=== PATIENT | female | born 1950 | race Caucasian/White ===

== ENCOUNTER → 2017-05-21 | Outpatient (CLI) | payer OTHER ==
[~2017-05-21] MED LIST: ADDERALL 5 MG TA5 M1 PO; ADVAIR 100-501 EACH INH; ALLEGRA180 MG PO; ANASPAZ0.125 MG SL; ANTIVERT25 MG PO; APAP500 PO; ASTEPRO NS; AUGMENTIN 875875 MG PO; BACTROBAN NASAL1 GM NASAL; BENTYL 10 MG CA10 MG PO; BENTYL10 MG PO; BISACODYL SUPP10 MG RECTAL; BUSPIRONE HCL10 MG PO; CLONAZEPAM 0.50.5 M1 PO; CLONAZEPAM 1 MG1 M1 PO; DIVIGEL0.25 MG VAG; ESTRACE1 TUBE VAG; ETODOLAC 400 M400 M1 PO; ETODOLAC500 MG PO; EXCEDRIN CAPLE1 EACH PO; FELDENE20 MG PO; FLEXERIL PO; FLONASE 0.05%50 MCG NASAL; HYDROCODON-ACE1 EAC5 PO; HYDROCODONE-AP1 EAC6 PO; KEFLEX500 MG PO; LEXAPRO20 MG PO; LODINE XL400 MG PO; LODINE XL500 MG PO; LYRICA 75 MG CA75 MG PO; MACROBID 100 M100 M2 PO; MIRALAX255 GM PO; MUCINEX TA600 MG/TA2 PO; MULTIVITAMINS1 EAC7 PO; NEURONTIN 300300 M1 PO; NEXIUM40 MG PO; NORCO 10-325 T1 EACH PO; NORCO 5-325 TA1 EACH PO; PHENERGAN 25 MG25 MG PO; PRILOSEC 20 MG20 MG PO; PRILOSEC40 MG PO; PROAIR HFA8.5 GM NS; PROGESTERONE100 MG PO; RESTASIS1 EACH OPHTHALMIC; RITALIN5 MG PO; SEROQUEL 50 MG50 MG PO; SEROQUEL200 MG PO; SIMVASTATIN40 MG PO; SINGULAIR 10 MG10 M1 PO; SKELAXIN 800 M800 M1 PO; SLEEPING PILL; TESSALON PERLE100 M1 PO; TESSALON PERLE100 MG PO; TIZANIDINE HCL4 M1 PO; TOPAMAX 100 MG100 MG PO; TOPAMAX 25 MG T25 MG PO; TRICOR145 MG PO; VICODIN 5-5001 EACH PO; VIT D PO; VITAMIN D1000 UNI1 PO; VITAMIN D3400 UNIT PO; [UNRECOGNIZED DRUG - MIXTURE]; [UNRECOGNIZED DRUG - OTHER]; [UNRECOGNIZED DRUG - OTHER]; [UNRECOGNIZED DRUG - OTHER] PO
--- NOTE | 2017-06-05 08:28 | PAINCON ---
[address] [address] PAIN MANAGEMENT CONSULTATION Name: ANGIE VILLAR Room: [facility] NAKIA PizanoMisty#: [id number] Admission: 05/21/17 Attend Phys: Maria Teresa Fernando MD Discharge: Date of : 50 Report #: [id number] THIS REPORT FOR: //name// CC: Lance Fernando DATE OF SERVICE: 05/21/2017 CHIEF COMPLAINT: "Pain in my right foot on the bottom and in the little toe." HISTORY OF PRESENT ILLNESS: The patient is a 66-year-old female who has been referred to the pain clinic for evaluation. The patient states that she has a history of low back pain. She has undergone back surgery. Since the back surgery, she has had pain and discomfort radiating down into her right leg. She states that a considerable amount of her right leg was numb after the procedure, but most of that receded and improved. She has a residual amount of discomfort involving her right foot. Notes that activities of daily living such as walking, driving a car, and sleep are problematic secondary to this pain. She notes a burning, tingling type of discomfort in the plantar portion of her foot. Her right little toe is numb. She finds that this is quite disturbing and would like to have this evaluated and possibly treated. She has a spinal cord stimulator placed. She did undergo a series of epidural steroid injections in the past. After they were no longer helpful, a spinal cord stimulator was placed. This has been effective and quite helpful for the back pain. ALLERGIES: No known drug allergies. CURRENT MEDICATIONS: Include buspirone 10 mg b.i.d. provided by Dr. Pichardo, vitamin D 1000 units daily, vitamin D3 50,000 units weekly, clonazepam 1 mg daily, Restasis eye drops 1 drop to each eye b.i.d., Lexapro 20 mg, Estrace tube vaginal cream, etodolac 500 mg b.i.d., Flonase 0.05% nasal spray, Singulair 10 mg, Macrobid 100 mg as directed Saturday, Saturday, and Saturday, Prilosec 40 mg b.i.d., Seroquel 50 mg t.i.d., and Zocor 40 mg at bedtime. PAST MEDICAL HISTORY: 1. History of lumbar radiculopathy. 2. Multilevel degenerative disk disease. 3. Bilateral sacroiliitis. 4. Irritable bowel syndrome. 5. Chronic fatigue syndrome, by history. 6. Migraine headache without aura. 7. Compression fracture at T12. 8. Anxiety disorder. 9. Depression. 10. [place] [address] PAIN MANAGEMENT CONSULTATION Name: ANGIE VILLAR Room: [facility]#: [id number] Admission: 05/21/17 Attend Phys: Maria Teresa Fernando MD Discharge: Date of : 50 Report #: [id number] 11. Gastroesophageal reflux. 12. Dyslipidemia. PAST SURGICAL HISTORY: 1. Cholecystectomy. 2. Hysterectomy. 3. Bladder sling. 4. Back surgery. 5. Dorsal column stimulator. 6. Left shoulder surgery. 7. Excision of lump in the axilla of the left arm. SOCIAL HISTORY: The patient denies use of illicit drugs. Denies use of alcohol other than about once per three months. The patient retired about 16 years ago. REVIEW OF SYSTEMS: Questionnaire in the chart indicate noticed some weight gain, headaches, constipation, nocturia, insomnia, lightheadedness, dizziness, depression, anxiety disorder, dyslipidemia, gastroesophageal reflux. Pain impact score 26/70 indicating mild to moderate interference of daily activities. LABORATORY DATA: 1. History of multilevel degenerative disk disease of the lumbar spine with multilevel disk bulging, increased, including L5-S1 herniated disk nucleus pulposus with extrusion, which caused a right neural foraminal stenosis. 2. Status post left L4-L5 decompression hemilaminectomy. 3. Mild central spinal canal stenosis at L5-S1 and significant central spinal canal stenosis at L4-L5. 4. Multilevel degenerative facet osteoarthropathy of the lumbar spine. 5. History of right sacroiliitis. PAIN CLINIC ASSESSMENT: 1. The patient has some osteoarthritic changes in her low back. 2. Height 5 feet 6 inches, weight 178 pounds, BMI is 28.8. 3. Vital signs, blood pressure 142/71, heart rate 123, respiratory rate 16, room air saturation 96%, temperature 98.4. 4. Pain intensity score 8/10 for pain involving the right foot, the patient states that her low back pain is reasonably well controlled with her dorsal column stimulator. 5. Fall risk. The patient has not fallen and does not need assistance with walking, has not fallen in the last 3 months. 6. The patient is not on any blood thinner. 7. The patient is not being treated for hypertension. 8. Opioid therapy greater than 6 weeks. The patient is not on chronic opioid therapy at this juncture. 9. Risk assessment tool. 10. Recreational drug use, the patient denies [place] [address] PAIN MANAGEMENT CONSULTATION Name: ANGIE VILLAR Room: [facility]#: [id number] Admission: 05/21/17 Attend Phys: Maria Teresa Fernando MD Discharge: Date of : 50 Report #: [id number] patient denies use of tobacco. 11, The patient denies alcoholic use, particularly with use of her current medication regimen. PHYSICAL EXAMINATION: GENERAL: The patient is a well-developed, well-nourished white female. Appearance, appears appropriate at stated age. Orientation, the patient is alert and oriented with appropriate speech without push of speech. Affect, the patient appears appropriate and calm. HEENT: The patient is normocephalic and atraumatic. Extraocular eye muscles intact. Hearing is within normal limits. The patient denies any significant nasal congestion or problems. Buccal membranes are moist. NECK: Without bruits or masses. LUNGS: Clear to auscultation. HEART: Regular rate, normal S1, S2. ABDOMEN: Nontender. MUSCULOSKELETAL: Alignment appears normal without significant scoliosis, kyphosis, or lordosis. The patient's gait is somewhat normal with some complaint of discomfort in the right foot with ambulation. Back flexion to 40 degrees, lumbar extension left and right, lateral rotation left and right, and lateral bending were not very problematic. Muscle strength in the upper extremities is judged to be 5/5. Biceps tendon reflexes are +2 bilaterally, trace for brachioradialis and trace for triceps bilaterally. Sensations are within normal limits in the upper extremities. Deep tendon reflexes are +2 at the knees bilaterally and +1 at the ankles bilaterally. Muscle strength is judged to be 5/5 for the major muscle groups of the lower extremities. The patient is able to stand on her heels and stand on her toes. The patient's right foot is warm with good capillary refill at about 1 second. There is no sweating or hair changes. The patient complains of a numb sensation on the lateral portion of her little toe. She complains of pain and discomfort, which is a numbness, burning type discomfort underneath her toes on the plantar portion of her foot underneath her toes in the metatarsal areas. IMPRESSION: 1. Right foot pain in the plantar area as well as numbness along the lateral side of her small toe after back surgery. 2. History of lumbar radicular pain, improved with dorsal column stimulator, status post back surgeries. 3. Anxiety disorder. 4. Depression. 5. Postmenopausal symptoms. 6. Gastroesophageal reflux. 7. Hyperlipidemia. RECOMMENDATIONS: We discussed treatment options with the patient. A model was used to explain the anatomy of foot. Nerves, blood vessels, [place] [address] PAIN MANAGEMENT CONSULTATION Name: ANGIE VILLAR Uriel Room: [facility]#: [id number] Admission: 05/21/17 Attend Phys: Maria Teresa Fernando MD Discharge: Date of : 50 Report #: [id number] were reviewed with the patient. Most likely the cause of the pain was discussed. At this juncture, there are no lesions and foot surgery was not performed. It appears that this is a pain resulting from irritation of nerves involving the plantar fascia and the lateral portion of her foot with numbness along the lateral surface. We will consider a conservative approach. At this juncture, she will be given gabapentin and titrated as directed. She will call us if she has any concerns regarding this medication. We would like to thank you for letting us participate in her care. We hope she continues to improve. <ELECTRONICALLY SIGNED> By: Maria Teresa Fernando MD 06/05/17 0828 [id number] [id number]. [place]oacano Fernando MD /[facility]
== END ==
LOC: M.PC 03:30
DX: M79.671 Pain in right foot (principal); R20.0 Anesthesia of skin; M54.5 Low back pain; F41.9 Anxiety disorder, unspecified; F32.9 Major depressive disorder, single episode, unspecified; K21.9 Gastro-esophageal reflux disease without esophagitis; E78.5 Hyperlipidemia, unspecified; Z90.49 Acquired absence of other specified parts of digestive tract; Z90.710 Acquired absence of both cervix and uterus

== ENCOUNTER → 2017-06-18 | Outpatient (CLI) | payer OTHER ==
--- NOTE | 2017-07-03 08:21 | PAINCON ---
[facility] [address] [place] [address] PAIN MANAGEMENT CONSULTATION Name: ANGIE VILLAR Room: [facility] NAKIA Nguyen#: [id number] Admission: 06/18/17 Attend Phys: Maria Teresa Fernando MD Discharge: Date of : 50 Report #: [id number] THIS REPORT FOR: //name// CC: Lance Fernando DATE OF SERVICE: 06/18/2017 FOLLOWUP COMPLAINT: "The pain is doing better with no shooting pain in my little toe." FOLLOWUP HISTORY: The patient is a 66-year-old female who has been referred to the pain clinic for evaluation of foot pain. The patient has had some pain, which she states started some time ago. She has undergone back surgery. Since her back surgery, she has had pain and discomfort, which radiated down into her right foot. She has had numbness in her right leg. She has had a continued residual discomfort involving her right foot. She notes that activities of daily living such as driving her car, walking and sleep have been problematic secondary to this pain. She has had some burning, tingling type of discomfort in the plantar portion of her foot. She still has some numbness in her little toe. She does have a spinal cord stimulator in place. She has undergone epidural steroid injections. Given the pain that she was experiencing gabapentin 300 mg 1 p.o. t.i.d. was started at the last visit. She feels that her pain is improved. She rates it as a 3/10 at this juncture, down from an 8/10 at the last visit. She still has some numbness and tingling, but much more tolerable at this juncture. She is also trying to lose weight. Overall, she feels that things are going reasonably well and would like to continue with her current regimen. ALLERGIES: NO KNOWN DRUG ALLERGIES. MEDICATIONS: Review of current medications buspirone 10 mg p.o. b.i.d., vitamin D 1000 units daily, vitamin D3 50,000 units weekly, clonazepam 1 mg daily, Restasis eye drops 1 drop to each eye b.i.d., Lexapro 20 mg, Estrace tube vaginal cream, Etodolac 500 mg b.i.d., Flonase 0.05% nasal spray, Singulair 10 mg, Macrobid 100 mg as directed on Saturday, Saturday, Saturday, Prilosec 40 mg b.i.d., Seroquel 50 mg t.i.d., Zocor 40 mg at bedtime. PAIN CLINIC ASSESSMENT: 1. The patient has some osteoarthritic changes in her low back. 2. Height 5 feet 6 inches, weight 191 pounds, BMI is 30.9. 3. VITALS: Blood pressure 100/76, heart rate 89, respiratory rate 16, room air saturation 95%, temperature 98.6. 4. Pain intensity 3/10 involving the right foot down from 8/10 [place] [address] PAIN MANAGEMENT CONSULTATION Name: ANGIE VILLAR Room: [facility]#: [id number] Admission: 06/18/17 Attend Phys: Maria Teresa Fernando MD Discharge: Date of : 50 Report #: [id number] 5. Fall risk. The patient has not fallen in the last 3 months. 6. The patient is not on a blood thinner. 7. The patient is not being treated for hypertension. 8. Opioid therapy greater than 6 weeks. The patient is not on a chronic opioid therapy regimen. 9. Risk assessment tool. 10. Recreational drug use. The patient denies use of recreational drugs. 11. The patient denies use of tobacco. 12. The patient denies alcoholic use regularly. PHYSICAL EXAMINATION: GENERAL: The patient is a well-developed, well-nourished white female. She appears her stated age. Orientation: The patient is alert and oriented x 3. Speech is fluent without push. Affect appears appropriate and the patient is calm. HEENT: The patient is normocephalic, atraumatic. Extraocular eye muscles intact. Hearing is within normal limits. The patient denies any significant nasal congestion or problems. Mucous membranes are moist. NECK: Without bruits or masses. LUNGS: Clear to auscultation. HEART: Regular rate, normal S1, S2. ABDOMEN: Nontender. MUSCULOSKELETAL: Alignment is within normal limits without significant scoliosis, kyphosis or lordosis. The patient's gait is somewhat normal, but does complain of some right foot pain with ambulation. Muscle strength to the lower extremities judged to be 5/5 with symmetry. Upper extremity biceps +2, brachioradialis and triceps trace bilaterally. Muscle strength judged to be 5/5 in the upper extremities. The patient has some numbness and tingling in the right lower foot with some decrease in numbness, decreased burning and discomfort on the plantar portion beneath the metatarsals of her toe. IMPRESSION: 1. Right foot pain in the plantar area with improvement after gabapentin. Was more problematic after back surgery. 2. History of lumbar radicular pain improved with dorsal column stimulator, status post back surgeries. 3. Anxiety disorder. 4. Depression. 5. Post-menopausal symptoms. 6. Gastroesophageal reflux. 7. Hyperlipidemia. RECOMMENDATIONS: We discussed the treatment options with the patient. She has not had any problems with the gabapentin. Overall, she feels that things are improving. She feels that things have progressed. She feels that there is about an 80% improvement in her discomfort with [place] [address] PAIN MANAGEMENT CONSULTATION Name: ANGIE VILLAR Room: [facility] NAKIA PizanoMisty#: [id number] Admission: 06/18/17 Attend Phys: Maria Teresa Fernando MD Discharge: Date of : 50 Report #: [id number] complications. At this juncture, we will continue with the medications. If she notes any problems, she will call and contact the pain clinic. Otherwise, we will continue with this current medical regimen given its benefits for the patient. We would like to thank you for letting us participate in her care. We hope she continues to improve. <ELECTRONICALLY SIGNED> By: Maria Teresa Fernando MD 07/03/17 0821 [id number]. Michoacano Fernando MD /nt
== END ==
LOC: M.PC 00:27
DX: M54.16 Radiculopathy, lumbar region (principal)

== ENCOUNTER → 2017-07-16 | Outpatient (CLI) | payer OTHER ==
--- NOTE | 2017-07-23 08:16 | PAINCON ---
[address] [address] PAIN MANAGEMENT CONSULTATION Name: ANGIE VILLAR [facility] [id number] Admission: 07/16/17 Attend Phys: Maria Teresa Fernando MD Discharge: Date of : 50 Report #: [id number] THIS REPORT FOR: //name// CC: Lance Fernando DATE OF SERVICE: 07/16/2017 FOLLOWUP COMPLAINT: The gabapentin is working well. FOLLOWUP HISTORY: The patient is a 66-year-old female who has been seen in the Pain Clinic because of chronic foot pain. At this juncture, she finds that the gabapentin medication is working relatively well. She rates her pain as a 2/10. She is having less of the shooting pain. She does still have some pain and discomfort around her "baby toe with some numbness. Also, there is some discomfort in the ball of her foot. Overall, she feels that the gabapentin has been beneficial. She is not having any complaints from that and would like to continue its use. She rates overall the success with about 80% improvement in her pain. ALLERGIES: No known drug allergies. MEDICATIONS: Buspirone 10 mg 1 p.o. b.i.d., vitamin D 1000 units daily, vitamin D3 50,000 units weekly, clonazepam 1 mg daily, Restasis eye drops each eye b.i.d., Lexapro 20 mg, esterase tube vaginal cream, Etodolac 500 mg b.i.d., Flonase 0.05% nasal spray, Singulair 10 mg, Macrobid 100 mg as directed on Saturday, Saturday, and Saturday, Prilosec 40 mg b.i.d., Seroquel 50 mg t.i.d., Zocor 40 mg at bedtime. PAIN CLINIC ASSESSMENT: 1. The patient has some osteoarthritic changes in her low back. 2. Height 5 feet 6 inches, weight 191 pounds, BMI is 30.8. 3. VITAL SIGNS: Blood pressure 125/79, respiratory rate is 16, heart rate is 90, room air saturation is 95%, and temperature 98.5. 4. Pain intensity judged to be 2/10, down from 8/10. 5. Fall risk. The patient has not fallen in the last 3 months. 6. The patient is not on a blood thinner. The patient does not take one. 7. Hypertension. The patient is not being treated for hypertension. 8. Opioid therapy greater than 6 weeks. The patient is not on chronic opioid medication. 9. Risk assessment tool. 10. Recreational drugs. The patient denies use of recreational drugs. 11. Tobacco: The patient denies use of tobacco. 12. Alcoholic beverage use. The patient denies [place] [address] PAIN MANAGEMENT CONSULTATION Name: ANGIE VILLAR Room: [facility]#: [id number] Admission: 07/16/17 Attend Phys: Maria Teresa Fernando MD Discharge: Date of : 50 Report #: [id number] PHYSICAL EXAMINATION: GENERAL: The patient is a well-developed and well-nourished white female. She appears her stated age. She is alert and oriented x 3. Speech is fluent. Affect is appropriate. HEENT: The patient is normocephalic, atraumatic. Extraocular eye muscles intact. Sclerae noninjected. Hearing is within normal limits. Mucous membranes are moist. NECK: Without adenopathy or bruits. HEART: Regular rate with normal S1, S2. LUNGS: Clear to auscultation without rubs or rhonchi. ABDOMEN: Nontender without organomegaly. MUSCULOSKELETAL: The patient has normal alignment without significant scoliosis, kyphosis, or lordosis. Her gait is somewhat normal. Does have some right foot pain and ambulates with care. Muscle strength in upper extremity is judged to be 5/5 for the major muscle groups with symmetry. Lower muscle strength is judged to be 5/5 in the major muscle groups with symmetry. The patient has some pain and discomfort in the right baby toe and numbness in the ball of her right foot. IMPRESSION: 1. Right foot pain in the plantar area with improvement after gabapentin. It was more problematic after back surgery. 2. History of lumbar radicular pain, improved with dorsal column stimulation status post back surgery. 3. Anxiety disorder. 4. Depression. 5. Postmenopausal symptoms. 6. Gastroesophageal reflux. 7. Hyperlipidemia. RECOMMENDATIONS: We discussed treatment options with the patient. At this juncture, she seems to be doing relatively well with the gabapentin. We will have her continue with this medication over the next 3 months. A script for this medication has been written. She will call us if she has any problems. Overall, she has noted an 80% improvement with her pain. We will continue with this medication. She will call us if she has any problems. We would like to thank you for letting us participate in her care. We hope she continues to improve. <ELECTRONICALLY SIGNED> By: Maria Teresa Fernando MD 07/23/17 0816 [id number]. Michoacano Fernando MD /nt
== END ==
LOC: M.PC 01:27
DX: F41.9 Anxiety disorder, unspecified (principal); E78.5 Hyperlipidemia, unspecified; N95.1 Menopausal and female climacteric states

== ENCOUNTER → 2017-08-09 | Outpatient (CLI) | payer OTHER | LOC: M.CT 13:30 | DX: R91.8 Other nonspecific abnormal finding of lung field (principal) ==

== ENCOUNTER → 2017-10-09 | Outpatient (CLI) | payer OTHER ==
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
== END | disposition home or self-care (01) ==
LOC: M.PC 10-08 09:20
DX: M47.816 Spondylosis without myelopathy or radiculopathy, lumbar region (principal); M47.817 Spondylosis without myelopathy or radiculopathy, lumbosacral region; M54.9 Dorsalgia, unspecified; S22.080A Wedge compression fracture of T11-T12 vertebra, initial encounter for closed fracture; S32.010A Wedge compression fracture of first lumbar vertebra, initial encounter for closed fracture; Z79.891 Long term (current) use of opiate analgesic; Z79.899 Other long term (current) drug therapy; X58.XXXA Exposure to other specified factors, initial encounter; Y93.89 Activity, other specified; Y92.89 Other specified places as the place of occurrence of the external cause; Y99.8 Other external cause status

== ENCOUNTER → 2017-11-07 | Outpatient (CLI) | payer OTHER ==
--- NOTE | 2017-11-27 16:41 | PAINCON ---
[facility] [address] [place] [address] PAIN MANAGEMENT CONSULTATION Name: ANGIE VILLAR Room: [facility] ESTER Wendy#: [id number] Admission: 11/07/17 Attend Phys: Maria Teresa Fernando MD Discharge: Date of : 50 Report #: [id number] THIS REPORT FOR: //name// CC: Lance Fernando DATE OF SERVICE: 11/07/2017 FOLLOWUP COMPLAINT: Here for medication renewal. FOLLOWUP HISTORY: The patient is a 67-year-old female who has been followed in the pain clinic. As you recall, she has low back pain. She has had it for years. She does wear a back brace. She is able to clean. 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 She gets no help at home. She does wear a back brace. This enables her to do more activities with less discomfort. She states that she received about 50% improvement in her pain relief after her last injection. Did note some increased sweating. Rates her pain as 4-5/10 at this juncture. Finds that the hydrocodone is helpful and the gabapentin. She would like to continue with these medications. ALLERGIES: No known drug allergies. MEDICATIONS: Buspirone 10 mg 1 p.o. b.i.d., vitamin D 1000 units, vitamin D3 50,000 units weekly, clonazepam 1 mg daily, Restasis eye drops each eye b.i.d., Lexapro 20 mg, esterase tube vaginal cream, Etodolac 500 mg b.i.d., Flonase 0.05% nasal spray, Singulair 10 mg; Macrobid 100 mg Mondays, Wednesdays, Fridays; Prilosec 40 mg b.i.d., Seroquel 50 mg t.i.d., Zocor 40 mg at bedtime. PAIN CLINIC ASSESSMENT: 1. The patient has some osteoarthritic changes in her low back. 2. Height 5 feet 6 inches, weight 189 pounds, BMI is 30.5. 3. Vital signs: Blood pressure 137/85, heart rate 91, respiratory rate 18, room air saturation 97%, temperature 99.9. 4. Pain intensity score 4-5/8. 5. Fall risk. The patient has not fallen in the last 3 months. 6. Hypertension. The patient is not being treated for hypertension. 7. Opioid therapy. The patient is not on a chronic opioid regimen. 8. Risk assessment tool. 9. Recreational drugs use. The patient denies use of recreational drugs. 10. Tobacco: The patient denies use of tobacco. 11. Alcoholic beverages. The patient denies use of alcoholic beverages. PHYSICAL EXAMINATION: GENERAL: The patient is a well-developed, well-nourished white female. Appears her stated age. She is alert and oriented x 3. Speech is fluent[place] [address] PAIN MANAGEMENT CONSULTATION Name: ANGIE VILLAR Room: [facility]#: [id number] Admission: 11/07/17 Attend Phys: Maria Teresa Fernando MD Discharge: Date of : 50 Report #: [id number] HEENT: Normocephalic, atraumatic. Extraocular eye muscles intact. Sclerae noninjected. The patient's hearing is within normal limits. Mucous membranes are moist. NECK: Without adenopathy or bruits. HEART: Regular rate, S1, S2. ABDOMEN: Nontender without organomegaly. MUSCULOSKELETAL: The patient has normal alignment without scoliosis, kyphosis, or lordosis. Gait is somewhat normal. The patient does have right foot pain and ambulates with care. Muscle strength is judged to be 5/5 for the major muscle groups in the upper extremity with symmetry. Lower extremity muscle strength is judged to be 5/5 for the major muscle groups with symmetry as well. The patient has some discomfort in her right baby toe with numbness in the ball of her foot. IMPRESSION: 1. Right foot pain in the plantar area with improvement using gabapentin. It has remained there and had been problematic since her back surgery. 2. History of lumbar radicular pain, improved with dorsal column stimulation, status post back surgery. 3. Anxiety disorder. 4. Depression. 5. Postmenopausal symptoms. 6. Gastroesophageal reflux. 7. Hyperlipidemia. RECOMMENDATIONS: We discussed treatment options with the patient. Risks and benefits of the medication were discussed. Possible complications of gabapentin and hydrocodone were reviewed. I explained to the patient that use of opioid medications such as hydrocodone can be helpful, but can be habit forming. I explained that they can lose their effectiveness secondary to development of tolerance. A script for the patient's medications of gabapentin 300 mg t.i.d., hydrocodone 5 mg one p.o. daily p.r.n. We would like to thank you for letting us participate in her care. We hope she continues to improve. <ELECTRONICALLY SIGNED> By: Maria Teresa Fernando MD 11/27/17 1641 [id number]. [place]oacano Fernando MD /nt
== END ==
LOC: M.PC 03:27
DX: M54.5 Low back pain (principal); M79.671 Pain in right foot; E78.2 Mixed hyperlipidemia; K21.9 Gastro-esophageal reflux disease without esophagitis; F41.9 Anxiety disorder, unspecified; F32.9 Major depressive disorder, single episode, unspecified; Z79.899 Other long term (current) drug therapy; Z78.0 Asymptomatic menopausal state

== ENCOUNTER → 2017-12-05 | Outpatient (CLI) | payer OTHER ==
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
== END ==
LOC: M.PC 04:39
DX: M54.16 Radiculopathy, lumbar region (principal); K21.9 Gastro-esophageal reflux disease without esophagitis; E78.5 Hyperlipidemia, unspecified; M79.671 Pain in right foot; F32.9 Major depressive disorder, single episode, unspecified; F41.9 Anxiety disorder, unspecified; Z78.0 Asymptomatic menopausal state; Z79.899 Other long term (current) drug therapy

== ENCOUNTER → 2018-01-02 | Outpatient (CLI) | payer OTHER ==
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
== END ==
LOC: M.PC 04:49
DX: M54.12 Radiculopathy, cervical region (principal); S32.000D Wedge compression fracture of unspecified lumbar vertebra, subsequent encounter for fracture with routine healing; F32.9 Major depressive disorder, single episode, unspecified; G89.4 Chronic pain syndrome; Z79.899 Other long term (current) drug therapy; X58.XXXD Exposure to other specified factors, subsequent encounter

== ENCOUNTER → 2018-02-04 | Outpatient (CLI) | payer OTHER ==
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
== END ==
LOC: M.PC 08:20
DX: M54.12 Radiculopathy, cervical region (principal); G89.4 Chronic pain syndrome; M43.22 Fusion of spine, cervical region; F32.9 Major depressive disorder, single episode, unspecified; G62.9 Polyneuropathy, unspecified; Z79.899 Other long term (current) drug therapy; Z87.81 Personal history of (healed) traumatic fracture

== ENCOUNTER → 2018-03-04 | Outpatient (CLI) | payer OTHER ==
[~2018-03-04] MED LIST changes: +RITALIN20 MG PO
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
== END ==
LOC: M.PC 05:24
DX: M54.12 Radiculopathy, cervical region (principal); M43.22 Fusion of spine, cervical region; F32.9 Major depressive disorder, single episode, unspecified; Z79.899 Other long term (current) drug therapy; G89.4 Chronic pain syndrome; S32.010A Wedge compression fracture of first lumbar vertebra, initial encounter for closed fracture; X58.XXXA Exposure to other specified factors, initial encounter; Y93.9 Activity, unspecified; Y92.89 Other specified places as the place of occurrence of the external cause; Y99.8 Other external cause status

== ENCOUNTER → 2018-03-10 | Outpatient (CLI) | payer OTHER | LOC: M.CT 13:44 | DX: R91.8 Other nonspecific abnormal finding of lung field (principal) ==

== ENCOUNTER → 2018-04-03 | Outpatient (CLI) | payer OTHER ==
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
== END ==
LOC: M.PC 10:50
DX: M54.12 Radiculopathy, cervical region (principal); M43.22 Fusion of spine, cervical region; F32.9 Major depressive disorder, single episode, unspecified; G89.4 Chronic pain syndrome; G62.9 Polyneuropathy, unspecified; M84.48XA Pathological fracture, other site, initial encounter for fracture; Z79.899 Other long term (current) drug therapy

== ENCOUNTER → 2018-04-22 | Outpatient (CLI) | payer OTHER ==
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
== END | disposition home or self-care (01) ==
LOC: M.PC 04:17
DX: M54.16 Radiculopathy, lumbar region (principal); G89.29 Other chronic pain; M54.12 Radiculopathy, cervical region; G62.9 Polyneuropathy, unspecified; F32.9 Major depressive disorder, single episode, unspecified; Z79.891 Long term (current) use of opiate analgesic; Z79.899 Other long term (current) drug therapy; Z98.890 Other specified postprocedural states

== ENCOUNTER → 2018-05-27 | Outpatient (CLI) | payer OTHER ==
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
== END ==
LOC: M.PC 05-01 11:20
DX: S32.000A Wedge compression fracture of unspecified lumbar vertebra, initial encounter for closed fracture (principal); M54.12 Radiculopathy, cervical region; M43.22 Fusion of spine, cervical region; G89.29 Other chronic pain; G62.9 Polyneuropathy, unspecified; L97.409 Non-pressure chronic ulcer of unspecified heel and midfoot with unspecified severity; F32.9 Major depressive disorder, single episode, unspecified; X58.XXXA Exposure to other specified factors, initial encounter; Y93.89 Activity, other specified; Y92.89 Other specified places as the place of occurrence of the external cause; Y99.8 Other external cause status; Z79.899 Other long term (current) drug therapy

== ENCOUNTER → 2018-09-23 | Outpatient (CLI) | payer OTHER ==
[~2018-09-23] MED LIST changes: +NORCO 5-325 TA1 EAC1 PO
--- NOTE | ~2018-09-23 | PAINCON ---
[address] [address] PAIN MANAGEMENT CONSULTATION Name: ANGIE VILLAR [facility]#: [id number] Admission: 09/23/18 Attend Phys: Maria Teresa Fernando MD Discharge: Date of : 50 Report #: [id number] THIS REPORT FOR: //name// CC: Lance Fernando DATE OF SERVICE: 09/23/2018 CHIEF COMPLAINT: Continued low back pain. HISTORY: The patient is a 68-year-old female who has been followed in the Pain Clinic because of chronic pain in the low back area. States that she is having pain that is radiating down into the right hip and down to involve her knee. She has underwent an epidural steroid injection earlier this year. She gleaned benefits from that injection and has returned today with the desire to undergo another epidural steroid injection to help quell her pain. She notes that the pain is worse when she is sitting for some prolonged periods of time. Her is followed by his physician, he has myasthenia gravis. Overall, things have been going reasonably well. Prolonged doctor visits have increased her pain. She feels that there is a crushing sensation in her spine. She feels that the hydrocodone and the gabapentin medications have been helpful. She would like to have these medications renewed. Notes that bending, lifting, walking, and standing exacerbate her discomfort. She has been doing home activities such as washing clothes. Going up and down the stairs exacerbates her discomfort. She now feels that her pain might get even worse because she needs to "iron." She rates her pain as a 7/10 at this juncture. ALLERGIES: No known drug allergies. MEDICATIONS: Adderall 5 mg b.i.d., buspirone 10 mg b.i.d., vitamin D 1000 units, vitamin D3 400 units, clonazepam 4 mg, ____ eyedrops t.i.d., Lexapro 20 mg 2 tablets, Estrace vaginal cream, etodolac 500 mg b.i.d., Flonase spray 0.05% puffs, gabapentin 300 mg t.i.d., hydrocodone 5/325, Singulair 10 mg, Prilosec 20 mg, Seroquel 50 mg t.i.d., and Zocor 40 mg. PAIN CLINIC ASSESSMENT AND PQRS: 1. The patient is not being treated for osteoarthritis or rheumatoid arthritis. She has had some problems with her back. 2. Height 5 feet 6 inches, weight 198 pounds, BMI is 37. 3. Vital Signs: Blood pressure 142/99, heart rate is 93, respiratory rate 14, room air saturation 96%, temperature 98.3. 4. Pain intensity: 8/10. 5. Fall history: The patient has not fallen in the last 3 months. 6. Blood thinner: The patient is not on a blood thinning medication. 7. Hypertension: The patient is not being treated for hypertension. 8. Opioids: The patient will receive her medications [place] [address] PAIN MANAGEMENT CONSULTATION Name: ANGIE VILLAR Room: [facility]#: [id number] Admission: 09/23/18 Attend Phys: Maria Teresa Fernando MD Discharge: Date of : 50 Report #: [id number] Clinic. 9. Risk assessment tool: Low for opioid use. 10. Functional assessment tool. 11. Recreational drug use: The patient denies use of recreational drugs. 12. Alcohol: The patient denies use of alcoholic beverages. PHYSICAL EXAMINATION: GENERAL: The patient is a well-developed, well-nourished, white female. Appears her stated age. She is alert and oriented x 3. Her affect is appropriate. Speech is fluent. HEENT: Normocephalic, atraumatic. Extraocular eye muscles intact. Sclerae nonicteric. NECK: Without adenopathy or JVD. CHEST: Clear to auscultation. HEART: Regular rate. LUNGS: Clear. MUSCULOSKELETAL: Upper extremity muscle strength is judged to be 5-/5 for the major muscle groups in the upper extremity. The patient has pain, which is 5-/5 for the major muscle groups in the lower extremity. The patient has a spinal cord stimulator in place on the right buttock area. IMPRESSION: 1. History of cervical radiculopathy with fusion. 2. Compression fracture in the low back area. 3. Depression. 4. Chronic pain, requiring complex medical management. 5. Neuropathic pain. The patient has had positive straight leg raise in the past and does have one today. 6. Ulcer of the foot, improved and healing. RECOMMENDATIONS: We discussed treatment options with the patient. The patient is having pain and discomfort, which is radiating down into her back and into the L5-S1 dermatomal distribution with straight leg raise positive. She has returned with the hope of undergoing another epidural steroid injection. The last injection was beneficial, this was in April 2018. She has pain that continues to radiate down in the low back area involving the right leg. She finds that the gabapentin medication is helpful. She also finds that the hydrocodone is helpful. A script for these medications have been written. The patient feels that her medications provide about 60% improvement in her medications. She will return to the Pain Clinic, at which time she would then undergo an epidural steroid injections at the L5-S1 area to help quell and decrease [place] [address] PAIN MANAGEMENT CONSULTATION Name: ANGIE VILLAR Room: [facility]#: [id number] Admission: 09/23/18 Attend Phys: Maria Teresa Fernando MD Discharge: Date of : 50 Report #: [id number] We would like to thank you for letting us participate in her care. We hope she continues to improve. By: [id number]. Michoacano Fernando MD /nt
== END ==
LOC: M.PC 05:46
DX: M48.56XA Collapsed vertebra, not elsewhere classified, lumbar region, initial encounter for fracture (principal); M54.12 Radiculopathy, cervical region; M43.22 Fusion of spine, cervical region; G62.9 Polyneuropathy, unspecified; F32.9 Major depressive disorder, single episode, unspecified; L97.509 Non-pressure chronic ulcer of other part of unspecified foot with unspecified severity; Z79.899 Other long term (current) drug therapy

== ENCOUNTER → 2018-09-30 | Outpatient (CLI) | payer OTHER ==
--- NOTE | 2018-10-01 14:27 | PAINCON ---
[address] [address] PAIN MANAGEMENT CONSULTATION Name: ANGIE VILLAR Room: [facility] JericaMisty#: [id number] Admission: 09/30/18 Attend Phys: Maria Teresa Fernando MD Discharge: Date of : 50 Report #: [id number] THIS REPORT FOR: //name// CC: Lance Fernando DATE OF SERVICE: 09/30/2018 CHIEF COMPLAINT: Low back pain and pain in the right hip and down to the knee. HISTORY: The patient is a 68-year-old female who has been seen in the pain clinic because of low back pain, has undergone epidural steroid injections. She returns today indicating that her pain has increased to 7/10. She would like to proceed with another epidural steroid injection. She did gleaned benefits from the last injection and feels that overall things have improved to be about 60%. She notes that her pain increases with activity, walking, sitting, standing, leaning and bending. Notes that her medications used for cold and rest are helpful. Her continues to be followed because of myasthenia gravis. Things are going reasonably well. Feels that the gabapentin as well as the [place] medications have been beneficial and would like to have these renewed. ALLERGIES: No known drug allergies. MEDICATIONS: Adderall 5 mg b.i.d., Buspirone 10 mg b.i.d., vitamin D 1000 units, vitamin D3 400 units, clonazepam 4 mg, eye drops t.i.d., Lexapro 20 mg, 2 tablets daily, Estrace vaginal cream, Etodolac 500 mg b.i.d., Flonase spray 0.05%, gabapentin 300 mg t.i.d., hydrocodone 5/325, Singulair 10 mg, Prilosec 20 mg, Seroquel 50 mg t.i.d., Zocor 40 mg. PAIN CLINIC ASSESSMENT/PQRS: 1. The patient is not being treated for osteoarthritis or rheumatoid arthritis. Does have some problems with her back. 2. Height 5 feet 6 inches, weight 198 pounds, BMI 32. 3. VITAL SIGNS: Blood pressure 148/40, heart rate 86, respiratory rate 16, room air saturation 98%. 2. Pain intensity 10/08. 3. Fall history: The patient has not fallen in the last 3 months. 4. Blood thinner. The patient is not on a blood thinning medication. 5. Opioids. The patient is receiving her medications from one source, the pain clinic. 6. Risk assessment tool, low for opioid use. 7. Functional assessment tool. Recreational drug use. The patient denies use of recreational drugs. 8. Alcohol: The patient denies use of alcoholic beverages. PHYSICAL EXAMINATION: [facility] [address] [place] [address] PAIN MANAGEMENT CONSULTATION Name: ANGIE VILLAR Room: [facility]#: [id number] Admission: 09/30/18 Attend Phys: Maria Teresa Fernando MD Discharge: Date of : 50 Report #: [id number] GENERAL: The patient is a well-developed, well-nourished white female. Appears her stated age. She is alert and oriented x 3. Her affect is appropriate. Speech is slow. HEENT: Normocephalic, atraumatic. Extraocular eye muscles intact. Sclerae nonicteric. Mucous membranes are moist. NECK: Without adenopathy or JVD. HEART: Regular rate. ABDOMEN: Nontender. Bowel sounds present. LUNGS: Clear to auscultation. EXTREMITIES: Upper extremity muscle strength judged to be 5-/5 for the major muscle groups in the upper extremity. The patient has pain and discomfort in the lower portion of her back. She has a well-healed scar in the mid portion of her back. Has a spinal cord stimulator in place on the area of the right buttocks. IMPRESSION: 1. History of cervical radiculopathy with fusion. 2. Compression fracture of the lumbar spine. 3. Depression. 4. Chronic pain requiring complex medical management with opioids. 5. Ulcer of the foot improved with healing. 6. Low back pain that radiates down the right hip to the knee. RECOMMENDATIONS: We discussed treatment options with the patient. Risks and benefits of an epidural steroid injection were discussed. Possible complications of the procedure, which could include but are not limited to infection, worsening of pain, no improvement in pain and nerve damage were discussed. The patient elects to proceed. PROCEDURE NOTE: The patient was taken to the procedure area. She was then assisted in getting on examination table. Her back was sterilely prepped with a Betadine solution. Fluoroscopy using anterior, posterior as well as lateral viewing were implemented. The patient's back at the L5-S1 area was identified. It was anesthetized using 0.25% bupivacaine and 25-gauge needle. At the L4-L5 area, a 17-gauge Tuohy with loss of resistance technique using 0.25% bupivacaine was used to gain access to the epidural space, aspiration was negative. A 17-gauge Tuohy was then used to inject 40 mg triamcinolone and 80 mg Depo-Medrol. The patient tolerated the procedure well. There were no complications. She remained in the Pain Clinic for an appropriate amount of time. She will follow up in the near future. We would like to thank you for letting us participate in her care. We hope [place] [address] PAIN MANAGEMENT CONSULTATION Name: AUREAANGIE Trevino Room: [facility]#: [id number] Admission: 09/30/18 Attend Phys: Maria Teresa Fernando MD Discharge: Date of : 50 Report #: [id number] Approximately 15 seconds fluoro time was used. <ELECTRONICALLY SIGNED> By: Maria Teresa Fernando MD 10/01/18 1427 [id number]. [place]oacano Fernando MD /nt
== END | disposition home or self-care (01) ==
LOC: M.PC 05:12
DX: M54.16 Radiculopathy, lumbar region (principal); G89.29 Other chronic pain; F32.9 Major depressive disorder, single episode, unspecified; Z98.890 Other specified postprocedural states; Z79.899 Other long term (current) drug therapy; Z79.891 Long term (current) use of opiate analgesic

== ENCOUNTER → 2018-10-21 | Outpatient (CLI) | payer OTHER | LOC: M.PC 05:21 | DX: M48.56XA Collapsed vertebra, not elsewhere classified, lumbar region, initial encounter for fracture (principal); F32.9 Major depressive disorder, single episode, unspecified; L97.509 Non-pressure chronic ulcer of other part of unspecified foot with unspecified severity; Z79.899 Other long term (current) drug therapy; M54.12 Radiculopathy, cervical region ==

== ENCOUNTER → 2018-11-18 | Outpatient (CLI) | payer OTHER ==
[~2018-11-18] MED LIST changes: +MOBIC15 MG PO
--- NOTE | ~2018-11-18 | PAINCON ---
[facility] [address] [place] [address] PAIN MANAGEMENT CONSULTATION Name: ANGIE VILLAR Room: [facility] NAKIA Nguyen#: [id number] Admission: 11/18/18 Attend Phys: Maria Teresa Fernando MD Discharge: Date of : 50 Report #: [id number] THIS REPORT FOR: //name// CC: Lance Fernando DATE OF SERVICE: 11/18/2018 CHIEF COMPLAINT: Low back pain. HISTORY: The patient is a 68-year-old female, who has been followed in the pain clinic because of chronic pain. As you may recall, she has had pain and discomfort in the back. She has undergone epidural steroid injections. She also has a spinal cord stimulator in place. She has pain that is in the lower portion of her back. This pain has been problematic for a number of years. She does have a spinal cord stimulator. Because of the continued pain, she has been evaluated by the [employer]. She rates her pain as a 7/10. She feels that the gabapentin as well as [place]atz[place] medications are helpful. She feels that her medications continue to be helpful. She has been using etodolac. She is not sure that this medication has been as effective as a nonsteroidal anti-inflammatory medication. She would like to try another. CURRENT MEDICATIONS: Adderall 5 mg b.i.d., buspirone 10 mg b.i.d., vitamin D 1000 units, vitamin D3 400 units, clonazepam 4 mg, ____ eye drops t.i.d., Lexapro 20 mg 2 tablets daily, Estrace vaginal cream, etodolac 500 mg b.i.d., Flonase spray 0.05%, gabapentin 300 mg t.i.d., hydrocodone 5/325, Singulair 10 mg, Prilosec 20 mg, Seroquel 5 mg t.i.d., and Zocor 40 mg. ALLERGIES: No known drug allergies. PAIN CLINIC ASSESSMENT AND PQRS: 1. The patient is not being treated for osteoarthritis or rheumatoid arthritis. The patient does have some problems and pain in her back. 2. Pain intensity is 7/10. 3. Fall history: The patient has not fallen in the last 3 months. 4. Blood thinner. The patient is not on a blood thinning medication. 5. Opioids. The patient receives medication from one source, the pain clinic. 6. Risk assessment tool, low for opioids. 7. Functional assessment tool. 8. Recreational drug use. The patient denies. 9. Alcohol: The patient denies use of alcoholic beverages. PHYSICAL EXAMINATION: GENERAL: The patient is a well-developed, well-nourished white female. She appears her stated age. She is alert and oriented x 3. Her affect is appropriate. Speech is fluent. Height is 5 feet 6 inches, weight is 193 [facility] [address] [place] [address] PAIN MANAGEMENT CONSULTATION Name: ANGIE VILLAR [facility] [id number] Admission: 11/18/18 Attend Phys: Maria Teresa Fernando MD Discharge: Date of : 50 Report #: [id number] pounds, and BMI is 31.2. VITAL SIGNS: Blood pressure is 116/86, heart rate is 99, respiratory rate is 16, room air saturation is 95%, and temperature is 98.9. HEENT: Normocephalic, atraumatic. Extraocular eye muscles intact. Sclerae nonicteric. Mucous membranes are moist. NECK: Without adenopathy or JVD. HEART: Regular rate. ABDOMEN: Nontender. Bowel sounds present. LUNGS: Clear to auscultation without rhonchi or rales. EXTREMITIES: Upper extremity muscle strength is judged to be 5/5 for the major muscle groups in the upper extremity. The patient has pain and discomfort in lower portion of her back. The patient has a well-healed scar in the midline of her back. She has a spinal cord stimulator in place and is being interrogated by the nerve stimulator [email or web address]. IMPRESSION: 1. History of cervical radiculopathy with fusion. 2. Compression fracture of lumbar spine. 3. Depression. 4. Chronic pain, requiring complex medical management with opioids. 5. Ulcer of the foot, which has improved. 6. Low back pain that radiates down into the hip involving the knees. RECOMMENDATIONS: We have discussed treatment options with the patient. At this juncture, we will continue with her medications of gabapentin 300 mg 1 p.o. t.i.d. The patient has also been given a script for [place] 5 mg one p.o. q.4 hours. The patient will also try Mobic. Hopefully, this nonsteroidal anti-inflammatory medication will be more helpful with her nonsteroidal complaints. She will stop taking the etodolac. She will call us if she has any concerns. The patient was seen and tested by the nerve stimulator company in her back. We would like to thank you for letting us to participate in her care. We hope she continues to improve. By: [id number] [id number]. [place]oacano Fernando MD /PMT
== END ==
LOC: M.PC 05:09
DX: M54.12 Radiculopathy, cervical region (principal); M48.56XA Collapsed vertebra, not elsewhere classified, lumbar region, initial encounter for fracture; F32.9 Major depressive disorder, single episode, unspecified; L97.409 Non-pressure chronic ulcer of unspecified heel and midfoot with unspecified severity; G89.29 Other chronic pain; Z79.891 Long term (current) use of opiate analgesic; Z79.899 Other long term (current) drug therapy

== ENCOUNTER → 2018-12-04 | Outpatient (CLI) | payer OTHER | LOC: M.CT 12:48 | DX: R91.8 Other nonspecific abnormal finding of lung field (principal); M43.8X4 Other specified deforming dorsopathies, thoracic region; M43.8X6 Other specified deforming dorsopathies, lumbar region ==

== ENCOUNTER → 2018-12-18 | Outpatient (CLI) | payer OTHER ==
--- NOTE | 2018-12-22 09:24 | PAINCON ---
[facility] [address] [place] [address] PAIN MANAGEMENT CONSULTATION Name: ANGIE VILLAR Room: [facility] NAKIA Nguyen#: [id number] Admission: 12/18/18 Attend Phys: Maria Teresa Fernando MD Discharge: Date of : 50 Report #: [id number] THIS REPORT FOR: //name// CC: Lance Fernando DATE OF SERVICE: 12/18/2018 CHIEF COMPLAINT: Low back pain. HISTORY: The patient is a 68-year-old female who has been followed in the pain clinic. She has pain in her low back as well as has some pain that radiates down to the right leg. Epidural injections in the past have been helpful. She had an adjustment made to her spinal cord stimulator at the last visit with the [employer] represenative. Overall, she feels that things have improved as a result of that. She feels that it has helped a lot. She still has some right leg pain with some pulling at times. There is some soreness and tenderness involving that area. Notes that sometimes if she is having pain if she lies down and placed a heating pad in this area things improved. She is unable to get up and perform more activities with less discomfort. Her who has myasthenia gravis is doing reasonably well. He is doing better. Overall, things are going well for her and she would like to have her medications renewed. She has not had any complications with their use. CURRENT MEDICATIONS: Adderall 5 mg b.i.d., buspirone 10 mg b.i.d., vitamin D 1000 units, vitamin D3 400 units, clonazepam 4 mg, eye drops, Lexapro 20 mg 2 tablets daily, Estrace vaginal cream, Etodolac 500 mg b.i.d., Flonase spray 0.5%, gabapentin 300 mg t.i.d., hydrocodone 5/325 , Singulair 10 mg, Prilosec 20 mg, Seroquel 5 mg t.i.d., and Zocor 40 mg. ALLERGIES: No known drug allergies. PAIN CLINIC ASSESSMENT AND PQRS: 1. The patient is not being treated for osteoarthritis or rheumatoid arthritis. She does have some problems with pain in her low back and down into her right leg. 2. Height 5 feet 6 inches, weight 191 pounds, BMI is 30.8. 3. Vital Signs: Blood pressure 133/78, heart rate 102, respiratory rate 18, room air saturation 96%, temperature 98.9. 4. Pain intensity 10. 5. Fall history. The patient has not fallen in the last 3 months. 6. Blood thinner. The patient is not on a blood thinning medication. 7. Opioids. The patient receives medication from one source, the pain clinic. 8. Risk assessment tool, low for opioid use. 9. [place] [address] PAIN MANAGEMENT CONSULTATION Name: ANGIE VILLAR DENI [facility] [id number] Admission: 12/18/18 Attend Phys: Maria Teresa Fernando MD Discharge: Date of : 50 Report #: [id number] 10. Recreational drug use. The patient denies. 11. Alcohol. The patient denies use of alcoholic beverages. PHYSICAL EXAMINATION: GENERAL: The patient is a well-developed, well-nourished white female. Appears her stated age. She is alert and oriented x 3. Her affect is appropriate. Speech is fluent. HEENT: Normocephalic, atraumatic. Extraocular eye muscles intact. NECK: Without adenopathy or JVD. HEART: Regular rate. ABDOMEN: Nontender. Bowel sounds present. LUNGS: Clear to auscultation without rhonchi or rales. EXTREMITIES: Upper extremity muscle strength judged to be 5/5 for the major muscle groups in the upper extremity. The patient has some pain and discomfort in lower portion of her back. She has pain that is radiating down into the lower portion of her back involving the right leg in the buttocks area. IMPRESSION: 1. History of cervical radiculopathy with fusion. 2. Compression fracture of the lumbar spine. 3. Depression. 4. Chronic pain, requiring complex medical management with opioids. 5. Ulcer of the foot, which is improved. 6. Low back pain with pain radiating down to the hip and involving the knees, particularly on the right side. RECOMMENDATIONS: We discussed treatment options with the patient. At this juncture, we will continue with her current medications. We will renew her gabapentin medication. She will take 300 mg 1 p.o. t.i.d. The patient also will continue with the [place]. She is aware that opioid medications can be problematic. She is aware that opioid medications may become less effective over time because of tolerance. She keeps her medications in a guarded area. She is using Mobic. She will continue to monitor her GI tract. She will call us if she has any concerns. We would like to thank you for letting us participate in her care. She has noted an improvement in her pain as a result of the changes made to her stimulator. The spinal cord stimulators seems to be more efficacious. <ELECTRONICALLY SIGNED> By: Maria Teresa Fernando MD 12/22/18 0924 [id number]. [place]oacano Fernando MD /asa
== END ==
LOC: M.PC 05:04
DX: M48.56XA Collapsed vertebra, not elsewhere classified, lumbar region, initial encounter for fracture (principal); M54.12 Radiculopathy, cervical region; G89.29 Other chronic pain; L97.509 Non-pressure chronic ulcer of other part of unspecified foot with unspecified severity; F32.9 Major depressive disorder, single episode, unspecified; Z79.899 Other long term (current) drug therapy

== ENCOUNTER → 2019-04-20 | Outpatient (CLI) | payer MEDICARE ==
[2019-04-20 11:07] VITALS: BP 106/69
[2019-04-20 11:49] VITALS: BP 104/67
== END | disposition home or self-care (01) ==
LOC: M.RAD 04-14 16:25
DX: M51.26 Other intervertebral disc displacement, lumbar region (principal); M48.061 Spinal stenosis, lumbar region without neurogenic claudication; Z98.890 Other specified postprocedural states; Z79.899 Other long term (current) drug therapy

== ENCOUNTER → 2019-04-23 | Outpatient (CLI) | payer MEDICARE ==
--- NOTE | ~2019-04-23 | PAINCON ---
[facility] [address] [place] [address] PAIN MANAGEMENT CONSULTATION Name: ANGIE VILLAR Room: [facility] Wendy#: [id number] Admission: 04/23/19 Attend Phys: Maria Teresa Fernando MD Discharge: Date of : 50 Report #: [id number] THIS REPORT FOR: //name// CC: Lance Fernando DATE OF SERVICE: 04/23/2019 CHIEF COMPLAINT: Back pain. HISTORY OF PRESENT ILLNESS: The patient is a 68-year-old female who has been seen in the Pain Clinic because of chronic pain. She has undergone spinal cord stimulator placement. She had adjustments made to her spinal cord stimulator. She has noticed some improvement, but still feels that her pain is still problematic. She feels that her medications of gabapentin, meloxicam and the hydrocodone medication are helping. She rates her pain as 8/10 today. She has been told that her images showed degenerative joint disease. Continues to have pain that radiates into her hips, legs and knees. She describes it as a sharp, stabbing pain. These pains limit her activity. She has gleaned some benefit from epidural steroid injections in the past. She notes that walking, sitting, standing, bending could be problematic. She would like to continue with her medication and has had a CT of her back. She is unable to have MRI because of her indwelling stimulator. ALLERGIES: No known drug allergies. CURRENT MEDICATIONS: Adderall 5 mg b.i.d., buspirone 10 mg b.i.d., vitamin D 1000 units, vitamin D3 400 units, clonazepam 4 mg, eyedrops, Lexapro 20 mg 2 tablets daily, Estrace vaginal cream, Etodolac 500 mg b.i.d., Flonase spray 0.5%, gabapentin 300 mg t.i.d., hydrocodone 5/325, Singulair 10 mg, Prilosec 20 mg, Seroquel 5 mg t.i.d., Zocor 40 mg. PAIN CLINIC ASSESSMENT AND PQRS: 1. The patient is not being treated for osteoarthritis or rheumatoid arthritis. She does have some pain in her back and down into her right leg. 2. Height 5 feet 6 inches, weight 199 pounds, BMI is 32. 3. Vital Signs: Blood pressure 142/99, heart rate 116, respiratory rate 18, room air saturation 97%, actually the temperature is 99.1. Pain intensity 8/10. 4. Fall history: The patient has not fallen since we saw her last. 5. Blood thinner. The patient is not on a blood thinning medication. 6. Hypertension. The patient is not being treated for hypertension. 7. Opioids. The patient receives medication from one source, Pain Clinic. 8. Risk assessment tool, low for opioid use. 9. Functional assessment tool. 10. Recreational drug use: [place] [address] PAIN MANAGEMENT CONSULTATION Name: ANGIE VILLAR [facility] [id number] Admission: 04/23/19 Attend Phys: Maria Teresa Fernando MD Discharge: Date of : 50 Report #: [id number] 11. Tobacco: The patient denies use of tobacco. PHYSICAL EXAMINATION: GENERAL: The patient is a well-developed, well-nourished white female. Appears her stated age. She is alert and oriented x 3. Her affect is appropriate. She is accompanied by her significant other. HEENT: Normocephalic, atraumatic. Extraocular eye muscles intact. Sclerae nonicteric. Mucous membranes are moist. NECK: Without adenopathy or JVD. HEART: Regular rate. ABDOMEN: Nontender. Bowel sounds present. LUNGS: Generally clear to auscultation without rhonchi or rales. MUSCULOSKELETAL: Upper extremity muscle strength is judged to be 5/5. The patient continues to have some pain and discomfort that radiates down into her low back area and into the legs involving her knees and hips. IMPRESSION: 1. History of cervical radiculopathy with fusion. 2. Compression fracture in the lumbar spine. 3. Depression. 4. Chronic pain, requiring complex medical management to control pain with opioid use. 5. Ulcers of the foot, which have improved. 6. Low back pain radiating down to the hip involving the knees and the right side. LABORATORY DATA: 1. CT of the lumbar spine with contrast post-myelogram: A 60-year-old female with lumbar pain and bilateral leg pain. The patient was previously seen for lumbar MRI in 05/2016. Since then, she has undergone placement of a pain pump, cannot undergo an MRI. Comparison of the MRI studies performed in 08/2014 and on 06/28/2016. 2. Sagittal reconstructions demonstrate moderate compression deformities involving the upper aspect of T12 and L1. Previous MRI spine in revealed a moderate compression fracture at T12. The L1 compression fracture is new. 3. L2-3 foramen are intact. Mild disk bulging. Moderate hypertrophy. Moderate degenerative facet changes. 4. L3-L4, there is wncl-ok-hhglulil disk bulge at the L4 level with moderate ligamentum hypertrophy. This is beginning to produce circumferential narrowing of the sac, but it does not result in spinal stenosis. There is normal filling of the exiting L3 nerve root. There is blunting of the right root. 5. L4-5, there is moderate broad-based disk bulging at the L4-5 level. There is moderate ligamentum hypertrophy. This produces a moderate central canal stenosis. There is blunting of both L4 roots. 6. L5-S1, there is narrowing of the sac at the L5-S1 level compatible with underlying spinal stenosis. This includes moderate disk bulging and moderate [facility] [address] [place] [address] PAIN MANAGEMENT CONSULTATION Name: ANGIE VILLAR Room: [facility]#: [id number] Admission: 04/23/19 Attend Phys: Maria Teresa Fernando MD Discharge: Date of : 50 Report #: [id number] ligamentum thickening. There is blunting of both exiting L5 roots. There is partial filling of the S roots bilaterally. IMPRESSION: CT of lumbar spine following earlier myelogram demonstrates moderate broad-based disk bulging and ligamentum hypertrophy at the L4 level, producing at least a moderate canal stenosis. There is bulging of both L4 roots. There are similar less prominent narrowing of the canal at the L5-S1 level. There is complete blunting of both L5 roots. There is partial blunting of both S1 roots. There is circumferential thickening surrounding the sac at the L3-4 level. This does not yet resolved in spinal stenosis. RECOMMENDATIONS: We discussed the findings with the patient and with her . At this point, we will continue with her current medications of gabapentin 300 mg 1 p.o. t.i.d. She will also continue with the nonsteroidal anti-inflammatory medications, Mobic 15 mg 1 p.o. daily. She will also continue with hydrocodone 5/325 one p.o., total of 45 tablets have been provided. Possibility of an epidural steroid injection in the future still is an option. The patient still notes some benefit from her spinal cord stimulator. Should she find that it is not as functional, again she can meet with the stimulator employment program representative and undergo additional adjustments to her stimulator. We answered all the questions that the patient had at this juncture. We would like to thank you for letting us to participate in her care. We hope she continues to improve. By: 1406 [id number]. [place]ano Fernando MD /asa
== END ==
LOC: M.PC 04:08
DX: M54.12 Radiculopathy, cervical region (principal); M43.22 Fusion of spine, cervical region; F32.9 Major depressive disorder, single episode, unspecified; M48.56XA Collapsed vertebra, not elsewhere classified, lumbar region, initial encounter for fracture; L97.509 Non-pressure chronic ulcer of other part of unspecified foot with unspecified severity

== ENCOUNTER → 2019-05-12 | Outpatient (CLI) | payer MEDICARE ==
--- NOTE | 2019-05-15 08:24 | PAINCON ---
[address] [address] PAIN MANAGEMENT CONSULTATION Name: ANGIE VILLAR Room: [facility]#: [id number] Admission: 05/12/19 Attend Phys: Maria Teresa Fernando MD Discharge: Date of : 50 Report #: [id number] THIS REPORT FOR: //name// cc: Lance Miller MD, Anthony MD ~ THIS REPORT FOR: //name// CC: Lance Fernando DATE OF SERVICE: 05/12/2019 CHIEF COMPLAINT: Pain radiating down the back of the leg, was helped in the past with an injection and would like to have another. HISTORY: The patient is a 68-year-old female who has been followed in the pain clinic because of chronic pain. She has had back surgery. She has pain in the low back area with discomfort down the posterior portion of her legs on the left as well as the right side. She has had a spinal cord stimulator placed because of chronic pain. She was taking meloxicam. She states that her psychiatrist physician says that this medication would conflict with her psychotic medications and increase the chance of bleeding. She has some pain on the right leg. Near the medial portion of her knee palpation in this area causes some increased soreness. She has not noticed any swelling in the lower extremity. Denies any trauma to that area. Notes that walking, sitting, standing, bending, and lifting can be problematic. The right leg is most problematic. The patient feels that her pain has just gotten worse each day. ALLERGIES: No known drug allergies. CURRENT MEDICATIONS: Adderall 5 mg b.i.d., buspirone 10 mg b.i.d., vitamin D 1000 units, vitamin D3 400 units, clonazepam 4 mg, eyedrops, Lexapro 20 mg 2 times daily, Estrace vaginal cream, Etodolac 500 mg b.i.d., Flonase spray 0.5%, gabapentin 300 mg 1 p.o. t.i.d., hydrocodone 5/325, Singulair 10 mg, Prilosec 20 mg, Seroquel 5 mg t.i.d., and Zocor 40 mg. PAIN CLINIC ASSESSMENT/PQRS: 1. The patient is not being treated for osteoarthritis or rheumatoid arthritis. She does have some pain in her back that radiates down into her right leg. She is not being treated for rheumatoid arthritis. 2. Height 5 feet 6 inches, weight 197 pounds, BMI is 31.9. 3. Vital signs: Blood pressure 122/70, heart rate 103, respiratory rate 16, room air saturation 95%, temperature 98.2. 4. Pain intensity 7-8/10. 5. Fall history: The patient has not fallen in the last 3 [place] [address] PAIN MANAGEMENT CONSULTATION Name: ANGIE VILLAR Room: [facility]#: [id number] Admission: 05/12/19 Attend Phys: Maria Teresa Fernando MD Discharge: Date of : 50 Report #: [id number] 6. Blood thinner. The patient is not on a blood thinning medication. 7. Hypertension. The patient is not being treated for hypertension. 8. Opioids greater than 6 weeks. The patient received medication from one source, the pain clinic. 9. Risk assessment tool, low for opioid use. 10. Functional assessment tool has been reviewed. 11. Recreational drug use: The patient denies. 12. Tobacco: The patient denies use of tobacco. PHYSICAL EXAMINATION: GENERAL: The patient is a well-developed, well-nourished white female, who appears her stated age. She is alert and oriented x 3. Her affect is appropriate. Speech is fluent. HEENT: Normocephalic, atraumatic. Extraocular eye muscles intact. Sclerae are nonicteric. Mucous membranes are moist. NECK: Without adenopathy or JVD. HEART: Regular rate. ABDOMEN: Nontender. Bowel sounds present. The patient is lying on the bed in a prone position, complains of pain in the low back area and down into her leg, particularly on the right side. MUSCULOSKELETAL: The patient is without significant scoliosis, kyphosis or lordosis. Lower extremity muscle strength judged to be 5-/5 for the major muscle groups in the lower extremity. The patient's straight leg raise is positive on the right. IMPRESSION: 1. History of cervical radiculopathy with fusion. 2. Compression fracture of the lumbar spine. 3. Depression. 4. Chronic pain, requiring complex medical management with opioids. 5. History of ulcers of the foot. They have improved. 6. Left low back pain radiating down to the hip involving the knees and the L5-S1 dermatomal distribution today. RECOMMENDATIONS: We discussed treatment options with the patient. Risks and benefits of an epidural steroid injection were again reviewed. The possible complications of the procedure, which could include but are not limited to infection, worsening of pain, no improvement in pain, nerve damage, spinal headache, bleeding, increased muscle soreness was discussed. The patient elects to proceed. PROCEDURE NOTE: The patient was taken to the procedure area. She was then assisted in getting on the examination table. Her back was sterilely prepped with a Betadine solution. Fluoroscopy using anterior, posterior as well as lateral viewing was implemented. A skin wheal was placed at the L5-S1 area after it has been sterilely prepped with a Betadine solution [place] [address] PAIN MANAGEMENT CONSULTATION Name: ANGIE VILLAR Room: [facility]#: [id number] Admission: 05/12/19 Attend Phys: Maria Teresa Fernando MD Discharge: Date of : 50 Report #: [id number] A 17-gauge Tuohy with loss of resistance technique was used to gain access to the epidural space. There was no CSF, heme or paresthesia. Total of 80 mg of Depo-Medrol, 40 mg of triamcinolone and 2 mL of 0.25% bupivacaine was injected. The patient tolerated the procedure well. There were no complications. She remained in the Pain Clinic for an appropriate amount of time. She will follow up in the future as needed. We would like to thank you for letting us participate in her care. We hope she continues to improve. <ELECTRONICALLY SIGNED> By: Maria Teresa Fernando MD 05/15/19 0824 1333 2325N. [place]oacano Fernando MD /nt
== END | disposition home or self-care (01) ==
LOC: M.PC 03:24
DX: M54.16 Radiculopathy, lumbar region (principal); G89.29 Other chronic pain; F32.9 Major depressive disorder, single episode, unspecified; Z98.890 Other specified postprocedural states; Z79.899 Other long term (current) drug therapy; Z79.891 Long term (current) use of opiate analgesic

== ENCOUNTER → 2019-06-09 | Outpatient (CLI) | payer MEDICARE ==
--- NOTE | 2019-07-01 08:25 | PAINCON ---
[facility] [address] [place] [address] PAIN MANAGEMENT CONSULTATION Name: AUREAANGIE Trevino Room: [facility]#: [id number] Admission: 06/09/19 Attend Phys: Maria Teresa Fernando MD Discharge: Date of : 50 Report #: [id number] THIS REPORT FOR: //name// cc: Lance Miller MD, Anthony MD ~ THIS REPORT FOR: //name// CC: Lance Fernando DATE OF SERVICE: 06/09/2019 CHIEF COMPLAINT: Continued low back pain. HISTORY: The patient is a 68-year-old female who has been followed in the pain clinic. As you recall, she does have chronic pain. It has been ongoing for a number of years. She has undergone epidural steroid injections. She noticed that her pain improved after the last epidural steroid injection. It has started to return. She received about 90% improvement after the last injection. She would like to return to undergo another injection. She rates her pain as a 7/10. Notes that the pain is worse with walking, sitting, standing and activities of daily living, lifting and bending can be problematic. ALLERGIES: No known drug allergies. CURRENT MEDICATIONS: Adderall 5 mg b.i.d., buspirone 10 mg b.i.d., vitamin D 1000 units, vitamin D3 400 units, clonazepam 4 mg, eyedrops, Lexapro 20 mg 2 times daily, Estrace vaginal cream, Etodolac 500 mg b.i.d., Flonase spray 0.5%, gabapentin 300 mg t.i.d., hydrocodone 5/325, Singulair 10 mg, Prilosec 20 mg, Seroquel 5 mg t.i.d., Zocor 40 mg. PAIN CLINIC ASSESSMENT/PQRS: 1. The patient is not being treated for osteoarthritis or rheumatoid arthritis. She does have pain in her back that radiates down to the right leg. She is not being treated for rheumatoid arthritis. 2. Height 5 feet 6 inches, weight 201 pounds, BMI is 32. 3. Vital signs: Blood pressure 132/89, heart rate 89, respiratory rate 16, room air saturation 95%, temperature 97.9. 4. Pain intensity 10/08. 5. Fall history: The patient has not fallen since we saw her last. 6. Blood thinner. The patient is not on a blood thinning medication. 7. Hypertension. The patient is not being treated for hypertension. 8. Opioids greater than 6 weeks. The patient receives medications from one source the pain clinic. 9. Risk assessment tool, low for opioid use. 10. Functional [place] [address] PAIN MANAGEMENT CONSULTATION Name: ANGIE VILLAR Room: [facility]#: [id number] Admission: 06/09/19 Attend Phys: Maria Teresa Fernando MD Discharge: Date of : 50 Report #: [id number] 11. Recreational drug use: The patient denies. 12. Tobacco: The patient denies. 13. Alcohol: The patient denies. PHYSICAL EXAMINATION: GENERAL: The patient is a well-developed, well-nourished white female. Appears her stated age. She is alert and oriented x 3. Her affect is appropriate. Speech is fluent. HEENT: Normocephalic, atraumatic. Extraocular eye muscles intact. Sclerae nonicteric. Mucous membranes are moist. NECK: Without adenopathy or JVD. HEART: Regular rate. ABDOMEN: Nontender. Bowel sounds present. MUSCULOSKELETAL: Without significant scoliosis, kyphosis or lordosis. The patient has pain and discomfort that is radiating down into the L5-S1 dermatomal distribution involving the right leg. She has a positive straight leg raise. IMPRESSION: 1. History of cervical radiculopathy with fusion. 2. Lumbar radiculopathy. 3. History of compression fracture of the lumbar spine. 4. Depression. 5. Pain requiring complex medications with treatment of using opioids. 6. History of ulcers of the foot, which is improved. RECOMMENDATIONS: We discussed treatment options with the patient. Risks and benefits of an epidural steroid injection were discussed. Possible complications of the procedure were discussed. They could include but are not limited to infection, worsening pain, no improvement in pain, nerve damage and the patient elects to proceed. The patient will be provided with her medications. A script for hydrocodone 5/325 one p.o. every 4-6 hours, total of 45 have been provided. The patient will also continue with gabapentin 300 mg 1 p.o. t.i.d. She will continue with meloxicam and note her GI status. If she notes any pain or discomfort in the GI area she will then stop taking the medications. She will return to the Pain Clinic, at a later date at which time she will then undergo an epidural steroid injection. We would like to thank you for letting us to participate in her care. We hope she continues to improve. <ELECTRONICALLY SIGNED> By: Maria Teresa Fernando MD 07/01/19 0825 1122 1205N. [place]ano Fernando MD /PMT
== END ==
LOC: M.PC 04:43
DX: M48.56XA Collapsed vertebra, not elsewhere classified, lumbar region, initial encounter for fracture (principal); M54.16 Radiculopathy, lumbar region; F32.9 Major depressive disorder, single episode, unspecified; Z79.899 Other long term (current) drug therapy; Z88.8 Allergy status to other drugs, medicaments and biological substances

== ENCOUNTER → 2019-06-16 | Outpatient (CLI) | payer MEDICARE ==
--- NOTE | 2019-06-26 09:00 | PAINCON ---
[facility] [address] [place] [address] PAIN MANAGEMENT CONSULTATION Name: ANGIE VILLAR Uriel Room: [facility]#: [id number] Admission: 06/16/19 Attend Phys: Maria Teresa Fernando MD Discharge: Date of : 50 Report #: [id number] THIS REPORT FOR: //name// cc: Lance Miller MD, Anthony MD THIS REPORT FOR: //name// CC: Lance Fernando CHIEF COMPLAINT: Low back pain down into the legs. HISTORY: The patient is a 68-year-old female who has been followed in the pain clinic. As you may recall, she has had back surgery. She has noticed a recurrence of pain and discomfort in the posterior portion of her legs. It is radiating down into the posterior portion. She does continue to use the spinal cord stimulator, which is in place. She has been using nonsteroidal anti-inflammatory medications. She has returned today for an epidural steroid injection. She has had that in the past and has been beneficial. She has returned today for renewal. Notes that the pain is worse with certain activities such as walking, bending, lifting, doing laundry. ALLERGIES: No known drug allergies. CURRENT MEDICATIONS: Adderall 5 mg b.i.d., buspirone 10 mg b.i.d., vitamin D 1000 units, vitamin D3 400 units, clonazepam 4 mg, eye drops, Lexapro 20 mg 2 times daily, Estrace vaginal cream, etodolac 500 mg b.i.d., Flonase spray 0.5%, gabapentin 300 mg t.i.d., hydrocodone 5/325, Singulair 10 mg, Prilosec 20 mg, Seroquel 5 mg t.i.d., Zocor 40 mg. PAIN CLINIC ASSESSMENT/PQRS: 1. The patient is not being treated for osteoarthritis or rheumatoid arthritis. She does have pain in her back that radiates down into the right leg. She is not being treated for rheumatoid arthritis. 2. Height 5 feet 6 inches, weight 197 pounds, BMI 32. 3. Vital Signs: Blood pressure 113/74, heart rate 104, respiratory rate 16, room air saturation 95%, temperature 99.1. 4. Pain intensity 10. 5. Fall history: The patient has not fallen since we saw her last. 6. Blood thinner. The patient is not on a blood thinning medication. 7. Hypertension. The patient is not being treated for hypertension. 8. Opioids greater than 6 weeks. The patient received medication from one source. 9. Risk assessment tool, low for opioid use. 10. Functional assessment tool, reviewed. 11. Recreational drug use: [place] [address] PAIN MANAGEMENT CONSULTATION Name: ANGIE VILLAR Room: [facility]#: [id number] Admission: 06/16/19 Attend Phys: Maria Teresa Fernando MD Discharge: Date of : 50 Report #: [id number] 12. Tobacco: The patient denies. 13. Alcohol: The patient denies. PHYSICAL EXAMINATION: GENERAL: The patient is a well-developed, well-nourished white female. Appears her stated age. She is oriented x 3. Her affect is appropriate. Speech is fluent. HEENT: Normocephalic and atraumatic. Extraocular eye muscles intact. Sclerae nonicteric. Mucous membranes are moist. NECK: Without adenopathy or JVD. HEART: Regular rate. ABDOMEN: Nontender. Bowel sounds present. MUSCULOSKELETAL: Without significant scoliosis, kyphosis or lordosis. The patient has pain and discomfort with pain that is radiating down into the L5-S1 dermatomal distribution, particularly on the right. Positive right straight leg raise. IMPRESSION: 1. History of cervical radiculopathy with fusion. 2. Compression fracture of lumbar spine. 3. Depression. 4. Chronic pain, requiring complex medical management with opioids. 5. History of ulcer of the foot, which is improved. 6. Left low back pain radiating down to the hip involving the knees as well as the L5-S1 dermatomal distribution, less problematic than the right today. RECOMMENDATIONS: We discussed treatment options with the patient. Risks and benefits of an epidural steroid injection were discussed. They include, but are not limited to infection, worsening pain, no improvement in pain, nerve damage, bleeding, spinal headache and the patient elects to proceed. PROCEDURE NOTE: The patient was taken to the procedure area. She was then assisted in getting on the examination table. Her back was sterilely prepped with a Betadine solution. A pillow was placed under the abdomen to bolster and improve positioning. Fluoroscopy using anterior, posterior as well as lateral viewing were implemented. At the L5-S1 area, 0.25% bupivacaine was infiltrated with 0.25% bupivacaine. After this area had been anesthetized, a 17-gauge Tuohy at the L5-S1 area was then used to gain access to the epidural space. There was no CSF, heme or paresthesia. Total of 80 mg Depo-Medrol, 40 mg triamcinolone and 2 mL of 0.25% bupivacaine was injected. The patient tolerated the procedure well. There were no complications. A script for her medications of hydrocodone 5 mg 1 p.o. t.i.d. p.r.n. 45 tablets and gabapentin 300 mg 1 p.o. t.i.d. have been provided. The patient will call us if [place] [address] PAIN MANAGEMENT CONSULTATION Name: ANGIE VILLAR Room: [facility]#: [id number] Admission: 06/16/19 Attend Phys: Maria Teresa Fernando MD Discharge: Date of : 50 Report #: [id number] We would like to thank you for letting us participate in her care. We hope she continues to improve. <ELECTRONICALLY SIGNED> By: Maria Teresa Fernando MD 06/26/19 0900 1529 1621N. [place]oacano Fernando MD /nt
== END | disposition home or self-care (01) ==
LOC: M.PC 03:51
DX: M54.16 Radiculopathy, lumbar region (principal); G89.29 Other chronic pain; F32.9 Major depressive disorder, single episode, unspecified; Z98.890 Other specified postprocedural states; Z79.899 Other long term (current) drug therapy; Z79.891 Long term (current) use of opiate analgesic

== ENCOUNTER → 2019-08-04 | Outpatient (CLI) | payer MEDICARE ==
[~2019-08-04] MED LIST changes: +HYDROCODON-ACE1 EAC7 PO
== END | disposition home or self-care (01) ==
LOC: M.PC 03:03
DX: M54.16 Radiculopathy, lumbar region (principal); G89.29 Other chronic pain; Z98.890 Other specified postprocedural states; Z79.899 Other long term (current) drug therapy

== ENCOUNTER → 2019-10-29 | Outpatient (CLI) | payer MEDICARE ==
[~2019-10-29] MED LIST changes: +NEURONTIN300 MG PO
--- NOTE | 2019-10-29 22:53 | PAINCON ---
[address] [address] PAIN MANAGEMENT CONSULTATION Name: AUREAANGIE Uriel Room: [facility]#: [id number] Admission: 10/29/19 Attend Phys: Maria Teresa Fernando MD Discharge: Date of : 50 Report #: [id number] THIS REPORT FOR: //name// cc: Lance Miller MD, Anthony MD ~ THIS REPORT FOR: //name// CC: Lance Fernando DATE OF SERVICE: 10/29/2019 CHIEF COMPLAINT: Increasing low back pain and weakness in my legs. HISTORY: The patient is a 69-year-old female who has been followed in the pain clinic because of chronic pain. She returns today because of pain that continues to radiate down into her left and right buttocks. It goes down the posterior portion of her buttocks into her leg and down into her calves. She notes some increased weakness. Prolonged standing can be problematic. Walking up and down stairs is difficult. States that she is spending more time in bed because of the pain and discomfort. She rates her pain as an 8-9/10. She feels that her medications are not holding her long enough. She has been using hydrocodone 5 mg tablets and takes two daily. She feels like she needs to take about 3 to be more helpful and active. She does not have any problems with the gabapentin. She feels that she is becoming less active. She is unable to do her work around the house and has continued to have more problems with activities of daily living. Epidural steroid injection in the past have been beneficial. ALLERGIES: No known drug allergies. CURRENT MEDICATIONS: Adderall 5 mg b.i.d., buspirone 10 mg b.i.d., vitamin D 1000 units, vitamin D3 400 units, clonazepam 4 mg, eyedrops, Lexapro 20 mg 2 times daily, Estrace vaginal cream, Etodolac 500 mg b.i.d., Flonase 0.5 mg, gabapentin 300 mg t.i.d., hydrocodone 5/325 b.i.d., Singulair 10 mg, Prilosec 20 mg, Seroquel 5 mg t.i.d., Zocor 40 mg. PAIN CLINIC ASSESSMENT/PQRS: 1. The patient is not being treated for osteoarthritis. 2. Rheumatoid arthritis. She does have pain that radiates down into her legs in the posterior L5-S1 dermatomal distribution. 3. Height 5 feet 6 inches, weight 199 pounds, BMI is 32. 4. Vital Signs: Blood pressure 116/45, heart rate 103, respiratory rate 16, room air saturation 96%, temperature 96.6. 5. Pain intensity 8/10. 6. Fall history: The patient has not fallen in the last 3 [place] [address] PAIN MANAGEMENT CONSULTATION Name: ANGIE VILLAR Room: [facility]#: [id number] Admission: 10/29/19 Attend Phys: Maria Teresa Fernando MD Discharge: Date of : 50 Report #: [id number] 7. Blood thinner. The patient is not on a blood thinning medication. 8. Hypertension. The patient is not being treated for hypertension. 9. Opioids greater than 6 weeks. The patient received medication from the pain clinic. 10. Risk assessment tool, low for opioid use. 11. Functional assessment tool reviewed. 12. Recreational drug use. The patient denies. 13. Tobacco: The patient denies. 14. Alcohol. The patient denies frequent use of alcoholic beverages. PHYSICAL EXAMINATION: GENERAL: The patient is a well-developed, well-nourished white female. Appears her stated age. She is alert and oriented x 3. She is accompanied by her . Speech is fluent. HEENT: Normocephalic, atraumatic. Extraocular eye muscles intact. Sclerae nonicteric. Mucous membranes are moist. The patient is wearing a mask. NECK: Without adenopathy or JVD. HEART: Regular rate. LUNGS: Clear. ABDOMEN: Nontender. Bowel sounds present. MUSCULOSKELETAL: The patient without significant scoliosis, kyphosis or lordosis. The patient does have pain and discomfort, which radiates down the L5-S1 dermatomal distribution on the right. She has a positive straight leg raise. IMPRESSION: 1. History of cervical radiculopathy with fusion in the past. 2. Compression fracture of the lumbar spine. 3. Depression. 4. Chronic pain, requiring medical management with opioid medications. 5. History of ulcer of the foot, which is improved. 6. Low back pain with pain that radiates down into the L5-S1 dermatomal distribution and involving both legs at this juncture. RECOMMENDATIONS: We discussed treatment options with the patient. At this juncture, we will continue with her medications. We will increase her hydrocodone to 5 mg 1 p.o. t.i.d. Hopefully, this will give her more pain benefit. Hopefully, she will be able to become more active. She states that she has been having to stay in bed longer because of the increasing pain and discomfort. We have discussed the problems with opioid medications at they can become less effective as time goes on because of tolerance. The patient and her have been sheltering at home because of the COVID-19. We will have the patient return to the pain clinic, at which time she will then undergo an epidural steroid injection. The risks and benefits have been discussed with the patient and [place] [address] PAIN MANAGEMENT CONSULTATION Name: ANGIE VILLAR Room: [facility]#: [id number] Admission: 10/29/19 Attend Phys: Maria Teresa Fernando MD Discharge: Date of : 50 Report #: [id number] We would like to thank you for letting us to participate in her care. We hope she continues to improve. <ELECTRONICALLY SIGNED> By: Maria Teresa Fernando MD 10/29/19 2253 [id number] 1510N. [place] Fernando MD /BLAKE
== END ==
LOC: M.PC 03:57
PROVIDERS: ATTEND Anesthesiology Pain Medicine
DX: M48.56XA Collapsed vertebra, not elsewhere classified, lumbar region, initial encounter for fracture (principal); F32.9 Major depressive disorder, single episode, unspecified; G89.29 Other chronic pain; F11.20 Opioid dependence, uncomplicated; Z87.11 Personal history of peptic ulcer disease; Z86.79 Personal history of other diseases of the circulatory system; Z79.899 Other long term (current) drug therapy

== ENCOUNTER → 2019-11-12 | Outpatient (CLI) | payer MEDICARE ==
--- NOTE | 2019-12-01 15:37 | PAINCON ---
[address] [address] PAIN MANAGEMENT CONSULTATION Name: ANGIE VILLAR Uriel Room: [facility]#: [id number] Admission: 11/12/19 Attend Phys: Maria Teresa Fernando MD Discharge: Date of : 50 Report #: [id number] THIS REPORT FOR: //name// cc: Lance Miller MD, Anthony MD ~ THIS REPORT FOR: //name// CC: Lance Fernando DATE OF SERVICE: 11/12/2019 CHIEF COMPLAINT: Weakness in the legs and pain down in the legs. HISTORY: The patient is a 69-year-old female who has been followed in the Pain Clinic because of lumbar radiculopathy. She has undergone epidural steroid injections in the past and found them to be quite beneficial. She returns today indicating that she is still having some pain and discomfort that is radiating down into her legs and causing problems. It involves the posterior calf . She has returned today for an epidural steroid injection, these have been helpful in the past. She desires another injection. She finds activities of daily living problematic because of this chronic pain. ALLERGIES: No known drug allergies. CURRENT MEDICATIONS: Adderall 5 mg b.i.d., buspirone 10 mg b.i.d., vitamin D 1000 units, vitamin D3 400 units, clonazepam 4 mg, eyedrops, Lexapro 20 mg 2 times daily, Estrace vaginal cream, etodolac 500 mg b.i.d., Flonase 0.5 mg, gabapentin 300 mg t.i.d., hydrocodone 5/325 one p.o. b.i.d., Singulair 10 mg, Prilosec 20 mg, Seroquel 5 mg t.i.d., Zocor 40 mg. PAIN CLINIC ASSESSMENT AND PQRS: 1. The patient is not being treated for osteoarthritis. The patient does have pain that radiates down into her legs. This is in the L5-S1 dermatomal distribution. 2. Height 5 feet 6 inches, weight 200 pounds, BMI 32. 3. Vital signs: Blood pressure 118/50, heart rate 102, respiratory rate 16, room air saturation 97%, temperature 96.8. 4. Pain intensity: 8/10. 5. Fall history: The patient has not fallen in the last 3 months. 6. Blood thinner: The patient is not on a blood thinning medication. 7. Opioids greater than 6 weeks: The patient receives medications from the Pain Clinic. 8. Risk assessment tool: Low for opioid use. 9. Functional assessment tool: [place] [address] PAIN MANAGEMENT CONSULTATION Name: ANGIE VILLAR Room: [facility]#: [id number] Admission: 11/12/19 Attend Phys: Maria Teresa Fernando MD Discharge: Date of : 50 Report #: [id number] 10. Recreational drug use: The patient denies. 11. Tobacco: The patient denies. 12. Alcohol: The patient denies frequent use of alcoholic beverages. PHYSICAL EXAMINATION: GENERAL: The patient is a well-developed, well-nourished, white female. Appears her stated age. She is alert and oriented x 3. Her affect is appropriate. Speech is fluent. She is accompanied by her . HEENT: Normocephalic, atraumatic. Extraocular eye muscles intact. Sclerae nonicteric. The patient is wearing a facial covering. NECK: Without adenopathy or JVD. HEART: Regular rate. LUNGS: Generally clear. ABDOMEN: Nontender. Bowel sounds present. MUSCULOSKELETAL: The patient does have pain and discomfort in lower portion of her back, which radiates down in the L5-S1 dermatomal distribution involving the right side. Positive straight leg raise. IMPRESSION: 1. History of cervical radiculopathy with fusion in the past. 2. Lumbar radiculopathy at L5-S1 area. 3. Decompression. 4. Chronic pain, requiring medical management with opioids. 5. History of ulcers of the foot, which have improved. RECOMMENDATIONS: We discussed treatment options with the patient. The risks and benefits of an epidural steroid injection were discussed. Possible complications of the procedure were again reviewed. We will proceed with an injection. We have discussed the problems with COVID-19, it is pandemic. Should the patient become infected as a result of decreased immune response, she may not do well. She is aware and elects to proceed. PROCEDURE NOTE: The patient was taken to the procedure area. She was then assisted in getting on the examination table. Her back was sterilely prepped with betadine solution. 0.25% bupivacaine was infiltrated in the L5-S1 area. A 17-gauge Tuohy with loss of resistance technique was used to gain access to the epidural space. There was no CSF, heme or paresthesia. The patient tolerated the procedure well. A script for gabapentin 300 mg has been provided. The patient will also continue with hydrocodone 5 mg 1 p.o. t.i.d. We would like to thank you for letting us participate in her care. Approximately 20 seconds fluoroscopy time was used to perform the procedure. <ELECTRONICALLY SIGNED> By: Maria Teresa Fernando MD 12/01/19 1537 [id number]. Michoacano Fernando MD /asa
== END | disposition home or self-care (01) ==
LOC: M.PC 01:48
PROVIDERS: ATTEND Anesthesiology Pain Medicine
DX: M54.16 Radiculopathy, lumbar region (principal); G89.29 Other chronic pain; Z98.890 Other specified postprocedural states; Z79.899 Other long term (current) drug therapy; Z79.891 Long term (current) use of opiate analgesic

== ENCOUNTER → 2019-12-31 | Outpatient (CLI) | payer MEDICARE ==
--- NOTE | 2020-01-12 14:22 | PAINCON ---
[facility] [address] [place] [address] PAIN MANAGEMENT CONSULTATION Name[facility]ANGIE [id number] Admission: 12/31/19 Attend Phys: Maria Teresa Fernando MD Discharge: Date of : 50 Report #: [id number] THIS REPORT FOR: //name// cc: Lance Miller MD, Anthony MD ~ THIS REPORT FOR: //name// CC: Lance Fernando DATE OF SERVICE: 12/31/2019 CHIEF COMPLAINT: Low back pain and joint pain. HISTORY: The patient is a 69-year-old female who has been followed in the pain clinic because of chronic pain. She does have lumbar radicular pain. She also has had trigger point and myofascial pain. She rates her pain today as an 8/10. Feels that her pain continues to be problematic. She has numbness in her right buttocks and down into her leg. She feels that the pain has gotten quite problematic. She is considering surgical option with Dr. Humphrey. She is considering an MRI or x-ray of her back to help her decide which direction to go. ALLERGIES: No known drug allergies. CURRENT MEDICATIONS: Adderall 5 mg b.i.d., buspirone 10 mg b.i.d., vitamin D 1000 units, vitamin D3 400 units, clonazepam 4 mg, eyedrops, Lexapro 20 mg 2 b.i.d., Estrace vaginal cream, Etodolac 500 mg b.i.d., Flonase 0.5 mg, gabapentin 300 mg t.i.d., hydrocodone 5/325 1 p.o. b.i.d., Singulair 10 mg, Prilosec 20 mg, Seroquel 5 mg t.i.d., Zocor 40 mg. PAIN CLINIC ASSESSMENT AND PQRS: 1. The patient is not being treated for osteoarthritis. She does have some pain that radiates down into both legs. Has pain in the L5-S1 dermatomal distribution. 2. Height 5 feet 6 inches, weight 196 pounds, BMI is 31.8. 3. Vital signs: Blood pressure 131/71, heart rate 125, respiratory rate 16, room air saturation 95%, temperature 97.9. 4. Pain intensity, 8/10. 5. Fall history. The patient has not fallen in the last 3 months. 6. Blood thinner. The patient is not on a blood thinning medication. 7. Opioids. The patient receives medications from one source. 8. Risk assessment tool, low for opioid use. 9. Functional assessment tool, reviewed. 10. Recreational drug use. The patient denies. 11. [place] [address] PAIN MANAGEMENT CONSULTATION Name: ANGIE VILLAR Room: [facility]#: [id number] Admission: 12/31/19 Attend Phys: Maria Teresa Fernando MD Discharge: Date of : 50 Report #: [id number] 12. Alcohol. The patient denies frequent use of alcoholic beverages. PHYSICAL EXAMINATION: GENERAL: The patient is a well-developed, well-nourished, white female. Appears her stated age. She is alert and oriented x 3. Her affect is appropriate. Speech is fluent. HEENT: Normocephalic, atraumatic. Extraocular eye muscles intact. The patient has a facial covering in place. NECK: Without adenopathy or JVD. HEART: Regular rate. LUNGS: Generally clear. ABDOMEN: Nontender. Bowel sounds present. MUSCULOSKELETAL: The patient does have pain and discomfort in lower portion of her back and has pain that continues radiating down the L5-S1 dermatomal distribution involving the right side with a straight leg raise, which is positive. IMPRESSION: 1. History of cervical radiculopathy with fusion in the past. 2. Lumbar radiculopathy, L5-S1 area, decompressed. 3. Chronic pain, requiring medical management with opioids. 4. History of ulcers of the foot, which have improved. RECOMMENDATIONS: We discussed treatment options with the patient. At this juncture, the patient will have her medications renewed. She will continue with the gabapentin 300 mg t.i.d. She will continue with hydrocodone 5/325. A script for these medications have been written. She will take hydrocodone 1 tablet p.o. t.i.d. We would like to thank you for letting us participate in her care. We hope she continues to improve. <ELECTRONICALLY SIGNED> By: Maria Teresa Fernando MD 01/12/20 1422 [id number]. Michoacano Fernando MD /BLAKE
== END ==
LOC: M.PC 11:50
PROVIDERS: ATTEND Anesthesiology Pain Medicine
DX: G89.29 Other chronic pain (principal); M54.17 Radiculopathy, lumbosacral region; Z88.8 Allergy status to other drugs, medicaments and biological substances; Z68.31 Body mass index [BMI] 31.0-31.9, adult; Z98.1 Arthrodesis status; Z79.891 Long term (current) use of opiate analgesic; Z79.899 Other long term (current) drug therapy

== ENCOUNTER → 2020-01-28 | Outpatient (CLI) | payer MEDICARE ==
--- NOTE | ~2020-01-28 | PAINCON ---
[facility] [address] [place] [address] PAIN MANAGEMENT CONSULTATION Name: ANGIE VILLAR Room: [facility]#: [id number] Admission: 01/28/20 Attend Phys: Maria Teresa Fernando MD Discharge: Date of : 50 Report #: [id number] THIS REPORT FOR: //name// cc: Lance Miller MD, Anthony MD ~ CC: Lance Fernando DATE OF SERVICE: 01/28/2020 CHIEF COMPLAINT: Here for medication renewal. HISTORY: The patient is a 69-year-old female who has been followed in the pain clinic. She has history of lumbar radicular pain. She has complaints of generalized pain today. She notes that the pain is more intense with certain activities such as walking. She notes that her right leg is experiencing some numbness. She is using Etodolac and finds that this is helpful. She rates her pain as a 9/10 today. She is considering surgical option. She would like to have her medications renewed today. ALLERGIES: No known drug allergies. CURRENT MEDICATIONS: Adderall 5 mg b.i.d., buspirone 10 mg b.i.d., vitamin D 1000 units, vitamin D3 400 units, clonazepam 4 mg, eyedrops, Lexapro 20 mg 2 tablets b.i.d., Estrace vaginal cream, Etodolac 500 mg b.i.d., Flonase 0.5 mg, gabapentin 300 mg t.i.d., hydrocodone 5/325 one p.o. b.i.d., Singulair 10 mg, Prilosec 20 mg, Seroquel 5 mg t.i.d., Zocor 40 mg. PAIN CLINIC ASSESSMENT AND PQRS: 1. The patient is not being treated for osteoarthritis. She does have some pain radiating down into both legs. She has pain in the L5-S1 dermatomal distribution. 2. Height 5 feet 6 inches, weight 197 pounds, BMI is 32. 3. Vital signs: Blood pressure 118/72, heart rate 109, respiratory rate 20, room air saturation 95%. 4. Temperature 96.8. 5. Pain intensity 12/09. 6. Fall history: The patient has not fallen in the last 3 months. 7. Blood thinner. The patient is not on a blood thinning medication. 8. Opioids. The patient receives medication from one source. 9. Risk assessment tool, low for opioid use. 10. Functional assessment tool reviewed. 11. Recreational drug use: The patient denies. 12. Tobacco: The patient denies. 13. Alcohol. The patient denies [place] [address] PAIN MANAGEMENT CONSULTATION Name: ANGIE VILLAR Room: [facility]#: [id number] Admission: 01/28/20 Attend Phys: Maria Teresa Fernando MD Discharge: Date of : 50 Report #: [id number] PHYSICAL EXAMINATION: GENERAL: The patient is a well-developed, well-nourished white female. Appears her stated age. She is alert and oriented x 3. Her affect is appropriate. Speech is fluent. She is accompanied by her . The patient is wearing a facial covering. NECK: Without adenopathy or JVD. HEART: Regular rate. LUNGS: Generally clear. ABDOMEN: Nontender. Bowel sounds present. MUSCULOSKELETAL: The patient does complain of pain and discomfort in lower portion of her back with pain that continues to be problematic, which radiates down the L5-S1 dermatomal distribution involving the right side: The patient has a positive straight leg raise. IMPRESSION: 1. History of cervical radiculopathy with fusion in the past. 2. Lumbar radiculopathy, L5-S1 area, decompressed. 3. Chronic pain, requiring medical management with opioids. 4. History of ulcers of the foot, which have improved. RECOMMENDATIONS: We discussed treatment options with the patient. At this juncture, we will continue with her medications. She is considering the possibility of surgical intervention. A script for her medications of gabapentin 300 mg 1 p.o. t.i.d. has been provided. The patient will also continue with hydrocodone 5/325. The patient is aware that these medications can become less effective as time goes on. She is able to think clearly. They are not clouding her sensorium. We would like to thank you for letting us participate in her care. We hope she continues to improve. By: [id number]. [place]oacano Fernando MD /nt
== END ==
LOC: M.PC 10:26
PROVIDERS: ATTEND Anesthesiology Pain Medicine
DX: G89.29 Other chronic pain (principal); M54.16 Radiculopathy, lumbar region; Z68.32 Body mass index [BMI] 32.0-32.9, adult; Z98.1 Arthrodesis status; Z79.891 Long term (current) use of opiate analgesic; Z79.899 Other long term (current) drug therapy

== ENCOUNTER → 2020-03-01 | Outpatient (CLI) | payer MEDICARE | LOC: M.PC 10:44 | PROVIDERS: ATTEND Anesthesiology Pain Medicine | DX: G89.29 Other chronic pain (principal); M54.16 Radiculopathy, lumbar region; M53.87 Other specified dorsopathies, lumbosacral region; Z68.31 Body mass index [BMI] 31.0-31.9, adult; Z98.1 Arthrodesis status; Z79.891 Long term (current) use of opiate analgesic; Z79.899 Other long term (current) drug therapy ==

== ENCOUNTER → 2020-04-26 | Outpatient (CLI) | payer MEDICARE | LOC: M.PC 10:31 | PROVIDERS: ATTEND Anesthesiology Pain Medicine | DX: M54.17 Radiculopathy, lumbosacral region (principal); G89.29 Other chronic pain; Z87.39 Personal history of other diseases of the musculoskeletal system and connective tissue; Z86.31 Personal history of diabetic foot ulcer; Z79.899 Other long term (current) drug therapy ==

== ENCOUNTER → 2020-05-24 | Outpatient (CLI) | payer MEDICARE | LOC: M.PC 10:31 | PROVIDERS: ATTEND Anesthesiology Pain Medicine | DX: M54.12 Radiculopathy, cervical region (principal); M54.16 Radiculopathy, lumbar region; G89.29 Other chronic pain; Z98.1 Arthrodesis status ==

== ENCOUNTER → 2020-07-19 | Outpatient (CLI) | payer MEDICARE | LOC: M.PC 10:31 | PROVIDERS: ATTEND Anesthesiology Pain Medicine | DX: M54.17 Radiculopathy, lumbosacral region (principal); F11.20 Opioid dependence, uncomplicated; Z86.31 Personal history of diabetic foot ulcer; Z87.39 Personal history of other diseases of the musculoskeletal system and connective tissue; Z79.899 Other long term (current) drug therapy ==

== ENCOUNTER → 2021-01-24 | Outpatient (CLI) | payer MEDICARE ==
[~2021-01-24] MED LIST changes: +CALCIUM 500 +1 EAC6 PO; +CLARITIN10 M3 PO; +ESTRACE42.5 GM VAG; +IBU400 MG PO; +IPRATROPIUM BRO15 ML NASAL; +LAMICTAL 25 MG25 MG PO; +OMEPRAZOLE40 MG PO; -SEROQUEL 50 MG50 MG PO; +SEROQUEL300 MG PO; +VITAMIN D31250 MC1 PO
== END ==
LOC: M.PC 10:36
PROVIDERS: ATTEND Anesthesiology Pain Medicine
DX: M54.17 Radiculopathy, lumbosacral region (principal); M54.12 Radiculopathy, cervical region; G89.29 Other chronic pain; Z79.899 Other long term (current) drug therapy

== ENCOUNTER → 2021-03-21 | Outpatient (CLI) | payer MEDICARE | LOC: M.PC 11:42 | PROVIDERS: ATTEND Anesthesiology Pain Medicine | DX: M54.16 Radiculopathy, lumbar region (principal); G89.29 Other chronic pain; M54.12 Radiculopathy, cervical region; M43.22 Fusion of spine, cervical region; Z79.899 Other long term (current) drug therapy ==